=== PATIENT | female | born 1940 | race African-American/Black ===

== ENCOUNTER 2018-06-08 13:22 | Emergency (ER) | payer MEDICARE, MEDICAID ==
[~2018-06-08] VITALS: Ht 162.6 cm; Wt 73.0 kg
[~2018-06-08 13:22] MED LIST: ASPI-1159 PO; CALC1TAB17 PO; EVIS60 PO; FLEC100T2 PO; HYDR25TA PO; METO25TA6 PO; MULT-1146 PO
[2018-06-08] MEDS ORDERED: MECLIZINE 25MG TABLET PO ONE (17:00)
[2018-06-08] MEDS ORDERED: ONDANSETRON 4MG ODT PO ONE (17:00)
[2018-06-08 17:14] LABS: CLARITY URINE CLEAR (CLEAR); COLOR URINE YELLOW (YELLOW); KETONES URINE NEGATIVE (NEGATIVE); LEUKOCYTE ESTERASE URINE 2+ (NEGATIVE); NITRITE URINE NEGATIVE (NEGATIVE); OCCULT BLOOD URINE TRACE (NEGATIVE); PH URINE 6.5 (4.5-8.0); PROTEIN URINE NEGATIVE (NEGATIVE); SPECIFIC GRAVITY URINE 1.008 (1.005-1.030); UROBILINOGEN URINE 0.2 E.U./dL (0.2-1.0)
[2018-06-08 17:16] LABS: BASOPHILS % 0.4 % (0.0-2.0); EOSINOPHILS % 0.6 % (0.0-5.0); HEMATOCRIT. 47.3 % (36.0-48.0); HEMOGLOBIN. 16.2 g/dL (12.0-16.0); LYMPHOCYTES % 37.1 % (20.0-50.0); MEAN CORPUSCULAR HEMOGLOBIN 31.8 pg (28.0-32.0); MEAN CORPUSCULAR VOLUME 92.9 fL (81.0-99.0); MONOCYTES % 9.3 % (2.0-8.0); NEUTROPHILS % 52.6 % (40.0-76.0); PLATELET 163 x1000/uL (130-400); PROTHROMBIN TIME 10.2 sec (9.1-11.1); RED BLOOD CELL COUNT 5.09 mill/uL (4.2-5.4)
[2018-06-08 17:18] LABS: CHLORIDE 102 mEq/L (98-107)
[2018-06-08 18:47] VITALS: BP 140/86
[2018-06-08] MEDS ORDERED: SULFAMETHOXAZOLE/TRIMETHOPRIM 800/160MG TABLET PO ONE (19:15)
== END 2018-06-08 20:50 | disposition home or self-care (01) ==
LOC: ER 14:02
DX: R42 Dizziness and giddiness (principal); I10 Essential (primary) hypertension; N39.0 Urinary tract infection, site not specified; R07.89 Other chest pain; I48.91 Unspecified atrial fibrillation; Z79.82 Long term (current) use of aspirin; Z79.899 Other long term (current) drug therapy; Z88.1 Allergy status to other antibiotic agents; Z98.890 Other specified postprocedural states
CPT/HCPCS: 36415; 71045; 80053; 81003; 83880; 84484; 85025; 85610; 93005; 99284; J8597; Q0162